=== PATIENT | female | born 2000 | race Caucasian/White ===

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

== ENCOUNTER → 2018-10-27 | Outpatient (CLI) | payer OTHER ==
[~2018-10-27] MED LIST changes: +MAGN296S9 PO
--- NOTE | 2018-10-27 16:05 | KCIC ---
KNEE RIGHT 3V DATE: 10/27/2018 12:00 AM INDICATION: Chronic right knee pain COMPARISON: None. FINDINGS/ IMPRESSION: No acute osseous abnormality. No knee joint effusion. No significant joint space narrowing. Electronically signed by: Anand Steen MD (10/27/2018 4:02 PM) [facility]
== END | disposition home or self-care (01) ==
LOC: KCIC 12:57
PROVIDERS: ATTEND Family Medicine
DX: M25.561 Pain in right knee (principal); G89.29 Other chronic pain
CPT/HCPCS: 73562

== ENCOUNTER → 2018-10-27 | Outpatient (CLI) | payer OTHER ==
--- NOTE | 2018-10-27 14:58 | KCIC ---
STUDY: MRI of the right knee without contrast INDICATION: Acute pain of the right knee. COMPARISON: Same day right knee radiographs. TECHNIQUE: Multiplanar MR imaging of the right knee performed without the use of intravenous or intra-articular contrast. FINDINGS: Menisci: Intact medial and lateral menisci. Cruciate ligaments: Intact ACL and PCL. Collateral ligaments: The medial and lateral collateral ligaments are intact. Tendons: The extensor tendon complex is unremarkable, as are the additional tendons at the knee. Cartilage: Patellofemoral: Intact. Lateral compartment: Intact. Medial compartment: Intact. Bones: No acute fracture. Normal marrow signal. Miscellaneous: No significant knee joint effusion. IMPRESSION: Unremarkable right knee MRI without acute internal derangement or significant degenerative change. Electronically signed by: CHRISTINA OG MD (10/27/2018 2:55 PM) [id number]
== END | disposition home or self-care (01) ==
LOC: KCIC MRI 13:09
PROVIDERS: ATTEND Family Medicine
DX: M25.561 Pain in right knee (principal); Z90.49 Acquired absence of other specified parts of digestive tract; Z98.890 Other specified postprocedural states
CPT/HCPCS: 73721

== ENCOUNTER → 2019-06-02 | Outpatient (CLI) | payer OTHER ==
[~2019-06-02] MED LIST changes: +MAGN296S68 PO; -MAGN296S9 PO
--- NOTE | 2019-06-02 12:21 | KCIC ---
Examination: SHOULDER 2+V RIGHT History: Limited range of motion Comparison/Correlation: None Findings: Total 3 images of the right shoulder were obtained. Joint spaces are normal. No fracture or bone destruction. Soft tissues unremarkable. Impression: Normal right shoulder x-ray exam. Electronically signed by: Barry Murphy MD (06/02/2019 12:18 PM) [id number]
== END ==
LOC: KCIC 11:55
PROVIDERS: ATTEND Family Medicine
DX: M25.511 Pain in right shoulder (principal)
CPT/HCPCS: 73030

== ENCOUNTER → 2019-08-18 | Outpatient (CLI) | payer OTHER ==
--- NOTE | 2019-08-18 16:53 | RAD ---
MR of the right shoulder HISTORY: Right shoulder pain. TECHNIQUE: Routine multiplanar sequences are obtained. FINDINGS: The acromioclavicular joint is intact. No evidence of a rotator cuff tear. No significant subdeltoid bursal effusion. No significant glenohumeral joint effusion. No evidence of labral tear or para labral cyst. No acute cartilage defect or advanced DJD. The biceps tendon is intact. No acute fracture. No aggressive bone destruction. IMPRESSION: No evidence of acute abnormality or internal derangement. Electronically signed by: Clinton Wilkins MD (08/18/2019 4:50 PM) [id number]
== END ==
LOC: MRI 14:21
PROVIDERS: ATTEND Family Medicine
DX: M25.511 Pain in right shoulder (principal)
CPT/HCPCS: 73221

== ENCOUNTER → 2021-02-24 | Outpatient (CLI) | payer OTHER ==
--- NOTE | 2021-02-24 13:47 | KCIC ---
EXAM: Right shoulder, 3 views. HISTORY: Pain. COMPARISON: None. FINDINGS: 3 views of the right shoulder obtained. There is no fracture, dislocation or subluxation. IMPRESSION: No acute osseous finding. Electronically signed by: Vciky Martin MD (02/24/2021 1:44 PM) [id number]
== END ==
LOC: KCIC 13:05
PROVIDERS: ATTEND Family Medicine
DX: M75.101 Unspecified rotator cuff tear or rupture of right shoulder, not specified as traumatic (principal); M25.511 Pain in right shoulder
CPT/HCPCS: 73030

== ENCOUNTER → 2021-03-14 | Outpatient (CLI) | payer OTHER ==
--- NOTE | 2021-03-14 16:16 | KCIC ---
EXAMINATION: MRI RIGHT SHOULDER WITHOUT IV CONTRAST CLINICAL HISTORY: Right shoulder pain and limited range of motion x3 weeks, no known injury. TECHNIQUE: Multiplanar multisequential images obtained through the shoulder without intravenous contr ast. COMPARISON: Right shoulder radiographs same day and MRI 08/18/2019 FINDINGS: TENDONS: - Supraspinatus: Within normal limits. - Infraspinatus: Within normal limits. - Subscapularis: Within normal limits. - Teres Minor: Within normal limits. - Biceps Tendon: Long head biceps tendon intact and appropriately located. MUSCLES: Muscle bulk and signal intensity are within normal limits. LABRUM: No discrete tear. GLENOHUMERAL JOINT: - Joint Fluid: No joint effusion or synovitis. - Cartilage: Within normal limits. ACROMIOCLAVICULAR JOINT: Within normal limits. BONES/MARROW: No evidence of acute fracture or suspicious marrow replacing process. IMPRESSION: Unremarkable exam right shoulder. No full-thickness rotator cuff tear. Electronically signed by: Derrick Mcdonald DO (03/14/2021 4:13 PM) [id number]
--- NOTE | 2021-03-15 02:15 | KCIC ---
EXAM: 3 Views Right Shoulder DATE: 03/14/2021 12:35 PM INDICATION: Reason: RIGHT SHOULDER PAIN / Spl. Instructions: Acute rt shoulder pain and limited mobil ity without known injury, 3weeks. / History: COMPARISON: No Prior FINDINGS: There is no evidence for acute fracture or dislocation. AC joint is congruent. Humeral head is not hi gh riding. IMPRESSION: 1. No acute fracture or dislocation. Electronically signed by: Ariel Quiles MD (03/15/2021 2:13 AM) [id number]
== END ==
LOC: KCIC MRI 12:19
PROVIDERS: ATTEND Family Medicine
DX: M25.511 Pain in right shoulder (principal)
CPT/HCPCS: 73030; 73221